=== PATIENT | female | born 1985 | race Hispanic/Latino ===

== ENCOUNTER 2016-12-08 22:08 | Emergency (ER) | payer SELFPAY ==
[2016-12-08] MEDS ORDERED: KEPPRA 1,000 MG/NS 0.75% 100ML 1,000 MG/100 ML BAG IV ONE (22:42)
[2016-12-08] MEDS ORDERED: NACL 0.9% 1000 ML 1,000 ML IV ONE (22:42)
[2016-12-08] MEDS ORDERED: TYLENOL PO ONE (23:19)
[2016-12-08 23:31] LABS: Anion Gap 14 mmol/L; Blood Urea Nitrogen 3 mg/dL (7-17); Calcium 8.4 mg/dL (8.4-10.2); Carbon Dioxide 30 mmol/L (22-30); Chloride 101.3 mmol/L (98-107); Glucose 96 mg/dL (65-100); Potassium 3.5 mmol/L (3.6-5.0); Sodium 142 mmol/L (137-145)
[2016-12-08 23:40] LABS: Basophils % (Auto) 0.2 % (0.0-1.8); Eosinophils % (Auto) 2.3 % (0.0-4.3); Hematocrit 29.5 % (30.3-42.9); Hemoglobin 9.8 gm/dl (10.1-14.3); Mean Corpuscular HGB Conc 33 % (30-34); Mean Corpuscular Hemoglobin 28 pg (28-32); Mean Corpuscular Volume 84 fl (79-97); Platelet Count 209 K/mm3 (140-440); Red Blood Count 3.51 M/mm3 (3.65-5.03); Red Cell Distribution Width 15.7 % (13.2-15.2); White Blood Count 4.6 K/mm3 (4.5-11.0)
[2016-12-09] MEDS ORDERED: ZOFRAN IV ONE (00:08)
[2016-12-09 00:25] LABS: Urine Drugs of Abuse Note Disclamer
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
[2016-12-09] MEDS ORDERED: K-DUR PO ONE (00:51)
[2016-12-09 04:09] VITALS: BP 109/63
== END 2016-12-09 03:45 | disposition home or self-care (01) ==
LOC: ED 22:08
DX: R56.9 Unspecified convulsions (principal); E87.6 Hypokalemia; D64.9 Anemia, unspecified; M94.0 Chondrocostal junction syndrome [Tietze]; I10 Essential (primary) hypertension; J45.909 Unspecified asthma, uncomplicated; F12.10 Cannabis abuse, uncomplicated; F17.200 Nicotine dependence, unspecified, uncomplicated; Z88.8 Allergy status to other drugs, medicaments and biological substances; Z88.6 Allergy status to analgesic agent
CPT/HCPCS: 36415; 80048; 80307; 82140; 82805; 83735; 84703; 85025; 96374; 96375; 99284; J1953; J2405; J7030

== ENCOUNTER 2016-12-09 13:47 | Emergency (ER) | payer OTHER ==
--- NOTE | 2016-12-09 14:35 | Emergency Department Report ---
ED Extremity Problem HPI - General Chief complaint: Extremity Problem,Nontraumatic Stated complaint: SWELLING ALL OVER BODY Time Seen by Provider: 12/09/16 14:17 Source: patient, EMS Mode of arrival: Stretcher Limitations: No Limitations - History of Present Illness Initial comments: Patient is related to his old female brought by EMS from [facility] [place] for assessment of bilateral hand swelling that started 2 days ago. Tenderness swelling started after a nurse seen in another ER tried to get IV lines are now. Patient denied any fever nausea or vomiting. No other complaints. MD Complaint: extremity pain, extremity swelling -: Gradual Location: left, right, upper extremity History of Same: No -: No fever Severity scale (0 -10): 6 Quality: sharp Consistency: constant Associated Symptoms: denies other symptoms. denies: chest pain, shortness of breath, fever, rash - Related Data Home Medications Medication Instructions Recorded Confirmed Last Taken Benztropine [Cogentin] 1 mg PO QID 12/08/16 12/08/16 Unknown Gabapentin [Neurontin] 300 mg PO BID 12/08/16 12/08/16 Unknown Haloperidol Lactate [Haldol] 5 mg IM Q8H PRN 12/08/16 12/08/16 Unknown Haloperidol [Haldol] 5 mg PO BID 12/08/16 12/08/16 Unknown LORazepam [Ativan] 1 mg IM Q8H PRN 12/08/16 12/08/16 Unknown LORazepam [Ativan] 1 mg PO TID PRN 12/08/16 12/08/16 Unknown Loratadine [Claritin] 10 mg PO DAILY 12/08/16 12/08/16 Unknown OLANzapine [ZyPREXA] 5 mg IM Q24HR PRN 12/08/16 12/08/16 Unknown Promethazine [Phenergan TAB] 25 mg PO Q4H PRN 12/08/16 12/08/16 Unknown Ziprasidone Mesylate [Geodon] 20 mg IM Q8H PRN 12/08/16 12/08/16 Unknown Ziprasidone [Geodon] 20 mg PO BID 12/08/16 12/08/16 Unknown cloNIDine [Catapres] 0.1 mg PO Q8H PRN 12/08/16 12/08/16 Unknown diphenhydrAMINE [Benadryl CAP] 50 mg IM Q4H PRN 12/08/16 12/08/16 Unknown hydrOXYzine PAMOATE [Vistaril] 50 mg PO BID 12/08/16 12/08/16 Unknown hydrOXYzine PAMOATE [Vistaril] 50 mg PO BID 12/08/16 12/08/16 Unknown levETIRAcetam [Keppra TAB] 500 mg PO BID 12/08/16 12/08/16 Unknown traZODone [Desyrel] 50 mg PO QHS 12/08/16 12/08/16 Unknown Allergies Allergy/AdvReac Type Severity Reaction Status Date / Time albuterol Allergy Rash Verified 12/08/16 22:52 divalproex sodium Allergy Unknown Verified 12/08/16 22:52 [From Depakote] ketorolac tromethamine Allergy Unknown Verified 12/08/16 23:30 [From Toradol] morphine Allergy Unknown Verified 12/08/16 23:30 Nitrate Analogues Allergy Unknown Verified 12/08/16 22:52 nitrofurantoin Allergy Unknown Verified 12/08/16 22:52 [From Macrobid] nitrofurantoin Allergy Unknown Verified 12/08/16 22:52 macrocrystalline [From Macrobid] ED Review of Systems ROS: Stated complaint: SWELLING ALL OVER BODY Other details as noted in HPI Comment: All other systems reviewed and negative Constitutional: denies: chills, fever Respiratory: denies: cough, shortness of breath, SOB with exertion Cardiovascular: denies: chest pain, palpitations Skin: denies: rash, lesions, change in color, change in hair/nails Neurological: denies: headache, weakness ED Past Medical Hx - Past Medical History Previous Medical History?: Yes Hx Hypertension: Yes Hx Seizures: Yes Hx Psychiatric Treatment: Yes (bipolar, depression) Hx Asthma: Yes Additional medical history: abdomen abscess, endometrosis, acute respiratory falure - Surgical History Past Surgical History?: Yes Hx Cholecystectomy: Yes Additional Surgical History: C/S - Social History Smoking Status: Current Every Day Smoker Substance Use Type: Alcohol, Marijuana - Medications Home Medications: Home Medications Medication Instructions Recorded Confirmed Last Taken Type Benztropine [Cogentin] 1 mg PO QID 12/08/16 12/08/16 Unknown History Gabapentin [Neurontin] 300 mg PO BID 12/08/16 12/08/16 Unknown History Haloperidol Lactate [Haldol] 5 mg IM Q8H PRN 12/08/16 12/08/16 Unknown History Haloperidol [Haldol] 5 mg PO BID 12/08/16 12/08/16 Unknown History LORazepam [Ativan] 1 mg IM Q8H PRN 12/08/16 12/08/16 Unknown History LORazepam [Ativan] 1 mg PO TID PRN 12/08/16 12/08/16 Unknown History Loratadine [Claritin] 10 mg PO DAILY 12/08/16 12/08/16 Unknown History OLANzapine [ZyPREXA] 5 mg IM Q24HR PRN 12/08/16 12/08/16 Unknown History Promethazine [Phenergan TAB] 25 mg PO Q4H PRN 12/08/16 12/08/16 Unknown History Ziprasidone Mesylate [Geodon] 20 mg IM Q8H PRN 12/08/16 12/08/16 Unknown History Ziprasidone [Geodon] 20 mg PO BID 12/08/16 12/08/16 Unknown History cloNIDine [Catapres] 0.1 mg PO Q8H PRN 12/08/16 12/08/16 Unknown History diphenhydrAMINE [Benadryl CAP] 50 mg IM Q4H PRN 12/08/16 12/08/16 Unknown History hydrOXYzine PAMOATE [Vistaril] 50 mg PO BID 12/08/16 12/08/16 Unknown History hydrOXYzine PAMOATE [Vistaril] 50 mg PO BID 12/08/16 12/08/16 Unknown History levETIRAcetam [Keppra TAB] 500 mg PO BID 12/08/16 12/08/16 Unknown History traZODone [Desyrel] 50 mg PO QHS 12/08/16 12/08/16 Unknown History ED Physical Exam - General Limitations: No Limitations General appearance: alert, in no apparent distress - Head Head exam: Present: normocephalic - ENT ENT exam: Present: normal exam - Neck Neck exam: Present: normal inspection. Absent: tenderness - Respiratory Respiratory exam: Present: normal lung sounds bilaterally. Absent: respiratory distress, wheezes, rales, rhonchi, chest wall tenderness - Cardiovascular Cardiovascular Exam: Present: regular rate, normal rhythm, normal heart sounds - GI/Abdominal GI/Abdominal exam: Present: soft. Absent: tenderness, guarding, rebound, rigid , bruit, pulsatile mass, hernia - Extremities Exam Extremities exam: Present: full ROM, tenderness, normal capillary refill, other (bilateral hand soft tissue swelling tender to palpation, no erythema or redness venipuncture is seen on both hands). Absent: pedal edema, joint swelling, calf tenderness - Back Exam Back exam: Present: normal inspection. Absent: CVA tenderness (R), CVA tenderness (L) - Neurological Exam Neurological exam: Present: alert, oriented X3, CN II-XII intact - Skin Skin exam: Present: warm, intact, normal color ED Course Vital Signs 12/09/16 14:11 Temperature 98.1 F Pulse Rate 82 Respiratory 16 Rate Blood Pressure 120/73 [Left] O2 Sat by Pulse 97 Oximetry - Reevaluation(s) Reevaluation #1: 12/09/16 16:19 Patient is asking for Dilaudid for her hand.. I informed the patient that this is not kind of the bend over given Dilaudid for. I reviewed patient in x-rays labs COME back normal except for mild soft tissue swelling. I'll provide not proceeding twice a day for 5 days and advised patient to follow-up with her primary doctor. Reevaluation #2: 12/09/16 16:23 Patient stated that she is not allergic to Naprosyn in bed and hurt her stomach sometimes. I would provide Zantac and advised patient to take his food. ED Medical Decision Making - Lab Data Result diagrams: 12/09/16 15:03 12/09/16 15:03 - Radiology Data Radiology results: image reviewed Mild soft tissue swelling and no fracture on the bilateral hands x-ray. Critical care attestation.: If time is entered above; I have spent that time in minutes in the direct care of this critically ill patient, excluding procedure time. ED Disposition Clinical Impression: Localized soft tissue swelling, Bilateral hand pain Disposition: [id number] PSY HOSP/PSY UNIT Is pt being admited?: No Condition: Stable Referrals: PRIMARY CARE, [Primary Care Provider] - 3-5 Days
[2016-12-09 15:17] LABS: Basophils % (Auto) 0.4 % (0.0-1.8); Eosinophils % (Auto) 2.4 % (0.0-4.3); Hematocrit 28.9 % (30.3-42.9); Hemoglobin 9.5 gm/dl (10.1-14.3); Mean Corpuscular HGB Conc 33 % (30-34); Mean Corpuscular Hemoglobin 28 pg (28-32); Mean Corpuscular Volume 84 fl (79-97); Platelet Count 198 K/mm3 (140-440); Red Blood Count 3.44 M/mm3 (3.65-5.03); Red Cell Distribution Width 16.2 % (13.2-15.2); White Blood Count 4.3 K/mm3 (4.5-11.0)
[2016-12-09 15:34] LABS: Alanine Aminotransferase 34 units/L (7-56); Albumin 3.4 g/dL (3.9-5); Albumin/Globulin Ratio 1.6 %; Alkaline Phosphatase 73 units/L (35-129); Anion Gap 13 mmol/L; Blood Urea Nitrogen 3 mg/dL (7-17); Calcium 8.7 mg/dL (8.4-10.2); Carbon Dioxide 31 mmol/L (22-30); Chloride 105.9 mmol/L (98-107); Glucose 100 mg/dL (65-100); Potassium 4.2 mmol/L (3.6-5.0); Sodium 146 mmol/L (137-145); Total Protein 5.5 g/dL (6.3-8.2)
[2016-12-09 15:50] LABS: Bilirubin,Urine NEG (Negative); Blood,Urine NEG (Negative); Ketones,Urine NEG (Negative); Leukocyte Esterase,Urine TR (Negative); Nitrite,Urine NEG (Negative); Protein,Urine <15 mg/dL mg/dL (Negative); Urobilinogen,Urine < 2.0 mg/dL (<2.0)
--- NOTE | 2016-12-09 16:51 | XRay Report ---
FINAL REPORT PROCEDURE: XR HAND BILAT 2V TECHNIQUE: Bilateral hands, three views HISTORY: soft tissue swelling COMPARISON: No prior studies are available for comparison. FINDINGS: No fracture or joint dislocation is seen. No radiopaque foreign body is seen. There is dorsal soft tissue swelling bilaterally. IMPRESSION: No acute osseous abnormality is seen
[2016-12-09 19:01] VITALS: BP 110/70
== END 2016-12-09 19:03 ==
LOC: ED 13:47
DX: M79.642 Pain in left hand (principal); M79.641 Pain in right hand; M79.89 Other specified soft tissue disorders; I10 Essential (primary) hypertension; F17.210 Nicotine dependence, cigarettes, uncomplicated; F12.10 Cannabis abuse, uncomplicated; Z88.6 Allergy status to analgesic agent; Z88.8 Allergy status to other drugs, medicaments and biological substances
CPT/HCPCS: 36415; 80053; 81001; 81025; 85025; 99285